=== PATIENT | female | born 1970 | race Caucasian/White ===

== ENCOUNTER → 2019-10-10 14:39 | Outpatient (BNVA) | payer SELFPAY | PROVIDERS: Family Provider Nurse Practitioner; PCP Nurse Practitioner; Visit Provider Nurse Practitioner | DX: R53.83 Other fatigue (principal); R10.9 Unspecified abdominal pain; G25.0 Essential tremor; F41.9 Anxiety disorder, unspecified | CPT/HCPCS: 80053; 81001; 84443; 85025 ==

== ENCOUNTER 2019-10-15 19:19 | Emergency (ER) | payer SELFPAY ==
[2019-10-15] VITALS (8 sets, daily range): BP systolic 88–123; BP diastolic 54–79; PULSE 83–85; RESP 18–20; TEMP 36.6; O2SAT 89–99; BMI 25.0
[2019-10-15 20:51] LABS: Basophils # 0.1 10^3/uL (0.0-0.1); Basophils % 0.9 %; Eosinophils # 0.2 10^3/uL (0.0-0.8); Eosinophils % 2.2 %; Hematocrit 41.8 % (37.0-47.0); Lymphocytes # 2.8 10^3/uL (0.8-4.8); Lymphocytes % 40.4 %; Mean Corpuscular HGB Conc 33.5 g/dL (30.0-36.0); Mean Corpuscular Hemoglobin 32.3 pg (28.0-34.0); Mean Corpuscular Volume 96.3 fL (81-99); Monocytes # 0.6 10^3/uL (0.2-0.9); Monocytes % 8.6 %; Neutrophils # 3.3 10^3/uL (1.8-7.7); Neutrophils % 47.8 %; Nucleated Red Blood Cells % 0 %; Platelet Count 252 10^3/cmm (130-400); Red Blood Count 4.34 10^6/uL (4.1-5.3); Red Cell Distribution Width 12.9 % (12.1-15.1); White Blood Count 6.8 10^3/uL (4.0-10.0)
[2019-10-15 20:57] LABS: Alanine Aminotransferase 6 U/L (0-33); Albumin Level 4.2 g/dL (3.5-5.2); Alkaline Phosphatase 65 IU/L (35-105); Anion Gap 12.7 (5-19); Aspartate Amino Transferase 13 U/L (0-32); Blood Urea Nitrogen 7 mg/dL (6-20); Calcium 9.5 mg/dL (8.5-10.5); Carbon Dioxide 29 mmol/L (22-29); Chloride 101 mmol/L (98-107); Globulin 2.6 g/dL (1.3-4.6); Glomerular Filtration Rate 88.9 mL/min (90-130); Lipase 12 U/L (13-60); Potassium 3.7 mmol/L (3.5-5.1); Sodium 139 mmol/L (136-145); Total Bilirubin 0.2 mg/dL (0.15-1.2); Total Protein 6.8 g/dL (6.6-8.7)
--- NOTE | 2019-10-15 20:59 | ED_ITS ---
Entered by Monique Ghotra, acting as scribe for Cathy Malik MD Oct 15, 2019 19:19 HPI - Abdominal Pain General: Chief Complaint: Abdominal Pain Stated Complaint: ABD PAIN Time Seen by Provider: 10/15/19 20:56 Source: patient and family Mode of arrival: ambulatory History of Present Illness: HPI narrative: 49 y/o female presents to the ED with complaint of abd pain. Pt states this started around 1300 today. Pt states she has chronic diarrhea and a hx of colitis. MD elicited complaint: abdominal pain (RLQ) Pain Consistency: constant Location: RLQ Severity: moderate Exacerbating factors: movement Relieving factors: nothing Associated Symptoms: Reports diarrhea; Denies chills, dysuria, fever(s), nausea and vomiting Review of Systems Const: Denies: fever, chills, body aches or change in appetite Eyes: Denies: blurry vision or eye discomfort ENMT: Denies: throat pain or dental pain Card: Denies: chest pain Resp: Denies: shortness of breath GI: Reports: abdominal pain and diarrhea; Denies: nausea or vomiting : Denies: painful urination Musc: Denies: neck pain or back pain Skin/Breast: Denies: rash Neuro: Denies: headache Psych: Denies: depression Hamlet/Lymph: Denies: easy bruising All/Imm: Denies: hives PFSH ED PFSH: Statuses (acute, chronic, etc) shown below reflect problem list status as previously entered and may not be historically accurate Medical History (Updated 10/15/19 @ 22:45 by Cathy Malik MD) Anxiety and depression (Chronic) Essential tremor (Chronic) History of gout (Acute) History of stroke (Acute) 2014 Seizure (Acute) Surgical History (Updated 10/10/19 @ 14:35 by LAURIE Jennings) History of hernia repair (Acute) 2014 History of hysterectomy (Acute) 1999 Family History (Updated 10/10/19 @ 14:38 by LAURIE Jennings) Mother Arthritis Cancer Breast Father Arthritis Brother Seizure disorder Social History Smoking and tobacco status: current every day smoker Smoking risk assessment/counseling performed?: Yes Alcohol intake: current Alcohol intake frequency: holidays/special occasions only Desire information about alcohol rehabilitation?: No Counseling given: No Desire information about substance/drug rehabilitation?: No Counseling given: No Adopted: No Caregiver/support person: No Lives independently: Yes Household members: spouse Housing: House Marital status: Number of children: 3 service: No Current occupational status: employed Current occupational exposures/hazards: No Pets and animals: Yes History of recent travel: No Current gender identity: Female Physical Exam Const: COMMON NORMALS: oriented x3 and alert HENMT: COMMON NORMALS: normocephalic and head/scalp atraumatic HEAD & SCALP: normocephalic and atraumatic Eye: COMMON NORMALS: PERRL and EOMs intact bilaterally PUPIL: Yes PERRL Neck/C-Spine: COMMON NORMALS: full ROM and supple Chest: COMMONS NORMALS: inspection of chest normal and palpation of chest normal Resp: COMMON NORMALS: normal respiratory effort, no retractions, no use of accessory muscles and clear to auscultation bilaterally AUSCULTATION: clear to auscultation bilaterally Cardio: COMMON NORMALS: regular rate, regular rhythm and no murmurs RATE: regular rate RHYTHM: regular rhythm GI: COMMON NORMALS: soft to palpation and no masses PALPATION: Yes soft and Yes tender Details: RLQ Extremity: COMMON NORMALS: normal to inspection and full ROM Neuro: COMMON NORMALS: oriented x3, moves all extremities and no focal motor deficits SENSORIUM/ORIENTATION: Yes alert Psych: COMMON NORMALS: mental status grossly normal, thought process normal and cooperative THOUGHT PROCESS: normal thought process Skin: COMMON NORMALS: no rashes or lesions noted and no wounds GENERAL SKIN EXAM: no rashes or lesions noted Course Vital Signs: Vital signs: Vital Signs Temperature 97.9 F 10/15/19 19:34 Pulse Rate 85 10/15/19 23:31 Respiratory Rate 18 10/15/19 23:31 Blood Pressure 115/68 10/15/19 23:31 Pulse Oximetry 90 10/15/19 23:31 MDM - Abdominal Pain MDM Narrative: Medical decision making narrative: Patient presents here with abdominal pain. Patient CT here is normal lab work looks normal as well. Her pain here is improved. Will prescribe her Bentyl and she is to follow-up with primary care doctor in 3 to 5 days return if worsening. Lab Data: Labs: Lab Results 10/15/19 10/15/19 10/15/19 Range/Units 19:53 20:35 20:35 WBC 6.8 (4.0-10.0) 10^3/ uL RBC 4.34 (4.1-5.3) 10^6/u L Hgb 14.0 (11.5-15.3) g/dL Hct 41.8 (37.0-47.0) % MCV 96.3 (81-99) fL MCH 32.3 (28.0-34.0) pg MCHC 33.5 (30.0-36.0) g/dL RDW 12.9 (12.1-15.1) % Plt Count 252 (130-400) 10^3/c mm MPV 10.0 (7.4-10.4) fL Neut % (Auto) 47.8 % Lymph % (Auto) 40.4 % Haskell % (Auto) 8.6 % Eos % (Auto) 2.2 % Baso % (Auto) 0.9 % Neut # (Auto) 3.3 (1.8-7.7) 10^3/u L Lymph # (Auto) 2.8 (0.8-4.8) 10^3/u L Haskell # (Auto) 0.6 (0.2-0.9) 10^3/u L Eos # (Auto) 0.2 (0.0-0.8) 10^3/u L Baso # (Auto) 0.1 (0.0-0.1) 10^3/u L Nucleated RBC % (a uto) 0 % Nucleated RBCs # 0.0 /100WBC Sodium 139 (136-145) mmol/L Potassium 3.7 (3.5-5.1) mmol/L Chloride 101 (98-107) mmol/L Carbon Dioxide 29 (22-29) mmol/L Anion Gap 12.7 (5-19) BUN 7 (6-20) mg/dL Creatinine 0.7 (0.5-0.9) mg/dL GFR Calculation 88.9 L (90-130) mL/min Glucose 88 (65-115) mg/dL Calcium 9.5 (8.5-10.5) mg/dL Total Bilirubin 0.2 (0.15-1.2) mg/dL AST 13 (0-32) U/L ALT 6 (0-33) U/L Alkaline Phosphata se 65 (35-105) IU/L Total Protein 6.8 (6.6-8.7) g/dL Albumin 4.2 (3.5-5.2) g/dL Globulin 2.6 (1.3-4.6) g/dL Lipase 12 L (13-60) U/L Urine Color Yellow (Yellow) Urine Appearance Clear (CLEAR) Urine pH 7 (5-7) Ur Specific Gravit y 1.015 (1.005-1.030) Urine Protein Neg (Negative) Urine Glucose (UA) Norm (Normal) Urine Ketones Negative (Negative) Urine Occult Blood Neg (Negative) Urine Nitrate Negative (Negative) Urine Bilirubin Neg (NEGATIVE) Urine Urobilinogen Norm (Negative) mg/dL Ur Leukocyte Laine ase Negative (Negative) Imaging Data ^: CT Abd/Pel: Radiologist's impression: [place] [address] CT Scan Report Signed Patient: Maria Cao #: [id number] : 1970Acct#:[id number] Age/Sex: 49 / FADM Date: 10/15/19 Loc: ERRoom/Bed: Attending Dr: Ordering Provider/Ordering MD: Cathy Malik MD Date of Service: 10/15/19 Procedure(s): CT abdomen pelvis w con* [id number] Accession Number(s): [id number] Report Number: [id number] PROCEDURE INFORMATION: Exam: CT Abdomen And Pelvis With Contrast Exam date and time: 10/15/2019 9:19 PM Age: 49 years old Clinical indication: Nausea; Abdominal pain; Localized; Right lower quadrant (rlq); Prior surgery; Surgery type: Hysto, hernia; Additional info: Abd pain TECHNIQUE: Imaging protocol: Computed tomography of the abdomen and pelvis with intravenous contrast. Total DLP: 612 mGy-cm Radiation optimization: All CT scans at this facility use at least one of these dose optimization techniques: automated exposure control; mA and/or kV adjustment per patient size (includes targeted exams where dose is matched to clinical indication); or iterative reconstruction. Contrast material: OMNI 300; Contrast volume: 95 ml; Contrast route: IV; COMPARISON: US pelvic with transvaginal 07/08/2019 1:19 PM FINDINGS: Lungs: In the left lower lobe there is an 11 x 9 mm opacity more likely representing atelectasis than a lung nodule. Incidental right middle lobe calcified granuloma. Liver: Normal. No mass. Gallbladder and bile ducts: Normal. No calcified stones. No ductal dilation. Pancreas: Normal. No ductal dilation. Spleen: Normal. No splenomegaly. Adrenals: Normal. No mass. Kidneys and ureters: Normal. No hydronephrosis. Stomach and bowel: There are a few noninflamed diverticula in the distal colon. The terminal ileum is normal. Small bowel is normal. Appendix: The appendix is normal. Intraperitoneal space: Unremarkable. No free air. No significant fluid collection. Vasculature: Unremarkable. No abdominal aortic aneurysm. Lymph nodes: Unremarkable. No enlarged lymph nodes. Bladder: Unremarkable as visualized. Reproductive: The uterus is surgically absent. Bones/joints: Unremarkable. No acute fracture. Soft tissues: Small umbilical hernia consist of fatty tissue only. CT/CT abdomen pelvis w con* [id number] IMPRESSION: 1. No acute abdominal or pelvic findings. 2. Other chronic and incidental findings as described. Radiation Dose CTDIVOL = (mGy): DLP = 612 (mGy-cm) Dictated By:Jose Manuel Gates MD Signed By:Jose Manuel Gatesigned Date/Time:10/15/192206 Discharge Plan Discharge Patient Disposition: Home, Self-Care Clinical Impression: Abdominal pain Qualifiers: Abdominal location: generalized Qualified Code(s): R10.84 - Generalized abdominal pain Condition: Stable Prescriptions: New dicyclomine 20 mg tablet 20 mg PO QID Qty: 20 RF: 0 No Action naproxen [Naprosyn] 500 mg tablet 500 mg PO BID PRNRF: 0 primidone 250 mg tablet 250 mg PO TID RF: 0 albuterol sulfate [ProAir HFA] 90 mcg/actuation HFA aerosol inhaler 2 puff INHALATION QID RF: 0 propranolol 40 mg tablet 40 mg PO BID RF: 0 Discharge Orders: Discharge Order (Routine); Ordered 10/15/19 Ordered By: Cathy Malik Referrals: Franklin Chaves, PROPERTY ASSISTANT-C [Primary Care Provider] - 4-7 days Discharge Diet: Advance as tolerated Discharge Activity: Resume usual activity Patient Instructions: Abdominal Pain (ED) Discharge Date/Time: 10/15/19 23:32 Coding Level of Care Code ED System Software Developer for Yg Yousif The documentation recorded by the Brandin zaidi Ashley, accurately reflects the service I personally performed and the decisions made by Helena lan Korby, MD Oct 15, 2019 19:19
--- NOTE | 2019-10-15 21:02 | CTR_ITS ---
PROCEDURE INFORMATION: Exam: CT Abdomen And Pelvis With Contrast Exam date and time: 10/15/2019 9:19 PM Age: 49 years old Clinical indication: Nausea; Abdominal pain; Localized; Right lower quadrant (rlq); Prior surgery; Surgery type: Hysto, hernia; Additional info: Abd pain TECHNIQUE: Imaging protocol: Computed tomography of the abdomen and pelvis with intravenous contrast. Total DLP: 612 mGy-cm Radiation optimization: All CT scans at this facility use at least one of these dose optimization techniques: automated exposure control; mA and/or kV adjustment per patient size (includes targeted exams where dose is matched to clinical indication); or iterative reconstruction. Contrast material: OMNI 300; Contrast volume: 95 ml; Contrast route: IV; COMPARISON: US pelvic with transvaginal 07/08/2019 1:19 PM FINDINGS: Lungs: In the left lower lobe there is an 11 x 9 mm opacity more likely representing atelectasis than a lung nodule. Incidental right middle lobe calcified granuloma. Liver: Normal. No mass. Gallbladder and bile ducts: Normal. No calcified stones. No ductal dilation. Pancreas: Normal. No ductal dilation. Spleen: Normal. No splenomegaly. Adrenals: Normal. No mass. Kidneys and ureters: Normal. No hydronephrosis. Stomach and bowel: There are a few noninflamed diverticula in the distal colon. The terminal ileum is normal. Small bowel is normal. Appendix: The appendix is normal. Intraperitoneal space: Unremarkable. No free air. No significant fluid collection. Vasculature: Unremarkable. No abdominal aortic aneurysm. Lymph nodes: Unremarkable. No enlarged lymph nodes. Bladder: Unremarkable as visualized. Reproductive: The uterus is surgically absent. Bones/joints: Unremarkable. No acute fracture. Soft tissues: Small umbilical hernia consist of fatty tissue only. CT/CT abdomen pelvis w con* [id number] IMPRESSION: 1. No acute abdominal or pelvic findings. 2. Other chronic and incidental findings as described. Radiation Dose CTDIVOL = (mGy): DLP = 612 (mGy-cm)
[2019-10-15 21:17] LABS: Add Urine Microscopic? NO
[2019-10-15 21:19] LABS: Bilirubin Urine Neg (NEGATIVE); Blood Urine Neg (Negative); Glucose Urine UA Norm (Normal); Ketones Urine Negative (Negative); Leukocyte Esterase Urine Negative (Negative); Nitrate Urine Negative (Negative); Protein Urine Neg (Negative); Specific Gravity, Urine 1.015 (1.005-1.030); Urine Appearance Clear (CLEAR); Urine Color Yellow (Yellow); Urobilinogen Urine Norm (Negative); pH Urine 7 (5-7)
--- NOTE | 2019-10-15 21:29 | PC.NURSE ---
pt presents to facility with c/o's RLQ abd pain rated 5/10. states she was walking to coffee pot around 1300 today and doubled over in pain. and has not let up thus far. abd tender to touch in RLQ. reports hx of rt sided inguinal hernia repair and hx of partial hysterectomy in 2000
[2019-10-15] MEDS: morphine 4 mg/mL SDV 1 mL IVP (21:34)
[2019-10-15] MEDS: ondansetron 2 mg/ML SDV 2 mL 4 MG IVP (21:34)
[2019-10-16 09:07] LABS: Glucose 88 mg/dL (65-115)
== END 2019-10-15 23:32 | disposition home or self-care (01) ==
PROVIDERS: Emergency Provider Emergency Medicine; Family Provider Nurse Practitioner; PCP Nurse Practitioner
DX: R10.84 Generalized abdominal pain (principal); F17.200 Nicotine dependence, unspecified, uncomplicated
CPT/HCPCS: 36415; 74177; 80053; 81003; 83690; 85025; 96374; 96375; 99283; J2270; J2405; Q9967

== ENCOUNTER → 2019-10-16 10:47 | Outpatient (BNVA) | payer SELFPAY | PROVIDERS: Family Provider Nurse Practitioner; PCP Nurse Practitioner; Visit Provider Nurse Practitioner | DX: M54.5 Low back pain (principal); I70.0 Atherosclerosis of aorta; R07.9 Chest pain, unspecified | CPT/HCPCS: 71046; 72100 ==

== ENCOUNTER 2019-12-25 17:18 | Emergency (ER) | payer SELFPAY ==
[2019-12-25 17:24] VITALS: BP 138/82; PULSE 69; RESP 17; TEMP 36.6; O2SAT 96; BMI 24.5
--- NOTE | 2019-12-25 17:32 | W.ED.EXTPRO ---
HPI - Extremity Problem General: Chief complaint: Extremity Injury, Upper Stated complaint: right hand finger lac Time Seen by Provider: 12/25/19 17:25 Source: patient Mode of arrival: ambulatory Limitations: no limitations History of Present Illness: HPI Narrative: Patient was shutting her garage door and caught her fourth finger on the right hand within the joint of the door. Patient ended up lacerating the ulnar aspect of the distal finger. Nail is intact. Patient states last tetanus was 6 to 7 years ago. Patient appears well. Patient appears in mild pain. Review of Systems General: Reports: 10 or more systems reviewed and unremarkable except in HPI and below Skin/Breast: Reports: other (Laceration fourth digit right hand.) PFSH ED PFSH: Social History Smoking and tobacco status: current every day smoker Smoking risk assessment/counseling performed?: Yes Alcohol intake: current Alcohol intake frequency: holidays/special occasions only Desire information about alcohol rehabilitation?: No Counseling given: No Desire information about substance/drug rehabilitation?: No Counseling given: No Adopted: No Caregiver/support person: No Lives independently: Yes Household members: spouse Housing: House Marital status: Number of children: 3 service: No Current occupational status: employed Current occupational exposures/hazards: No Pets and animals: Yes History of recent travel: No Current gender identity: Female Physical Exam Const: COMMON NORMALS: no apparent distress and oriented x3 GENERAL APPEARANCE: cooperative HENMT: COMMON NORMALS: normocephalic, TM's normal bilaterally and external nose normal HEAD & SCALP: normal to inspection and normocephalic NOSE: external nose normal TYMPANIC MEMBRANE: TM's normal bilaterally MOUTH: oral and palatal mucosa normal THROAT: posterior oropharynx normal Eye: GENERAL EYE: normal appearance of both eyes Neck/C-Spine: COMMON NORMALS: full ROM Lymph: LYMPHATIC: no lymphadenopathy noted Chest: COMMONS NORMALS: inspection of chest normal Resp: COMMON NORMALS: normal respiratory effort EFFORT & INSPECTION: Yes able to speak in complete sentences Cardio: COMMON NORMALS: regular rate and regular rhythm RATE: regular rate RHYTHM: regular rhythm GI: COMMON NORMALS: non-tender : COMMON NORMALS: Yes no CVA tenderness BLADDER/KIDNEY EXAM: Yes no CVA tenderness Back/Pelvis: COMMON NORMALS: no CVA tenderness and thoracic and lumbar spine normal to inspection Extremity: COMMON NORMALS: normal to inspection Neuro: COMMON NORMALS: oriented x3 and moves all extremities Psych: COMMON NORMALS: mental status grossly normal and cooperative Skin: NARRATIVE SKIN EXAM: 2 cm laceration to the ulnar aspect of the dorsal distal fourth digit on the right hand. Nailbed remains intact and nail plate is intact. Laceration is caused a skin flap. Normal tendon function is noted. No foreign body is noted. Procedures Laceration Laceration 1: Site: hand (right hand fourth finger) Side (If applicable): right Size (cm): 2 Description: flap Depth: simple, single layer Local Anesthetic: lidocaine 1% Amount of anesthesia used (mL): 3 Pre-repair: wound explored and deep structures intact Skin layer closed with: nylon Size (cm): 5-0 Number of sutures: 5 Technique: simple, interrupted Course Vital Signs: Vital signs: Vital Signs Temperature 97.9 F 12/25/19 17:24 Pulse Rate 69 12/25/19 17:24 Respiratory Rate 17 12/25/19 17:24 Blood Pressure 138/82 12/25/19 17:24 Pulse Oximetry 96 12/25/19 17:24 MDM - Extremity (Nontraumatic) MDM Narrative: Medical decision making narrative: Patient comes in today for injury to the right fourth digit. On exam we note a 2 cm laceration to the ulnar dorsal aspect of the right ring finger. Patient has normal range of motion of the finger. Good cap refill. Normal sensation. No signs of foreign body was noted or tendon injury was noted. Differential diagnosis includes but not limited to laceration, fracture, tendon injury, foreign body. X-ray of the finger noted no fracture. Wound was repaired with 5 sutures of 5-0 Ethilon. Patient tolerated well. Reviewed post procedure care and need for follow-up. Patient reported understanding. Discharge Plan Discharge Patient Disposition: Home, Self-Care Clinical Impression: Finger laceration Qualifiers: Encounter type: initial encounter Finger: ring finger Damage to nail status: without damage Foreign body presence: without foreign body Laterality: right Qualified Code(s): S61.214A - Laceration without foreign body of right ring finger without damage to nail, initial encounter Condition: Stable Prescriptions: New Bactrim DS 800-160 mg tablet 1 tab PO DAILY Qty: 7 RF: 0 No Action albuterol sulfate [ProAir HFA] 90 mcg/actuation HFA aerosol inhaler 2 puff INHALATION QID RF: 0 escitalopram oxalate [Lexapro] 5 mg tablet 5 mg PO DAILY Qty: 30 RF: 2 propranolol 40 mg tablet 40 mg PO BID Qty: 60 RF: 5 primidone 250 mg tablet 250 mg PO TID Qty: 90 RF: 5 Naprosyn 500 mg tablet 500 mg PO BID PRN (Reason: pain) RF: 0 Discharge Orders: Discharge Order (Routine); Ordered 12/25/19 Ordered By: Jatin Stewart Referrals: Franklin Chaves FNP-C [Primary Care Provider] - Discharge Diet: Usual diet Discharge Activity: Increase activity as tolerated Patient Instructions: Finger Laceration (ED) Activity Restrictions/Additional Instructions: Keep wound clean and dry. Avoid submersion underwater while sutures are in place. Activity as tolerated. Change dressing daily, wash with mild soap and water and dry thoroughly then cover. May go without dressing at bedtime. Return to the ER for increased pain or high fever. Follow-up with primary care in 1 week. Sutures out in 7 to 10 days. Coding Level of Care Code ED Service Crew Supervisor for Chg Fwd Exam Comprehensive
--- NOTE | 2019-12-25 17:36 | XR_ITS ---
WS: [id number] RIGHT HAND: 3 VIEW(S) TECHNIQUE: PA, oblique and lateral. HISTORY: injury COMPARISON: 09/14/2018 No acute fracture or dislocation. No soft tissue or bone abnormality. Mild degenerative changes at the first metatarsophalangeal joint. XR/XR hand RT min 3V* [id number] IMPRESSION: No acute RIGHT hand fracture.
[2019-12-25] MEDS: lidocaine 1% INJ 20 mL 6 ML SUBCUT (18:17)
[2019-12-25] MEDS: sulfamethoxazole-trimeth DS 160-800 mg Tablet 1 TAB PO (18:22)
[2019-12-25 18:24] VITALS: BP 108/79; PULSE 70; RESP 16; O2SAT 96
== END 2019-12-25 18:25 | disposition home or self-care (01) ==
PROVIDERS: Emergency Provider Nurse Practitioner Family; Family Provider Nurse Practitioner; PCP Nurse Practitioner
DX: S61.214A Laceration without foreign body of right ring finger without damage to nail, initial encounter (principal); W23.0XXA Caught, crushed, jammed, or pinched between moving objects, initial encounter; F17.210 Nicotine dependence, cigarettes, uncomplicated
CPT/HCPCS: 12001; 12345; 73130; 99281; 99283; J2001

== ENCOUNTER → 2020-09-24 15:57 | Outpatient (BNVA) | payer SELFPAY | PROVIDERS: Family Provider Nurse Practitioner; PCP Nurse Practitioner; Visit Provider Nurse Practitioner Family | DX: M79.672 Pain in left foot (principal) | CPT/HCPCS: 73630 ==

== ENCOUNTER → 2021-01-06 08:13 | Outpatient (BNVA) | payer SELFPAY | PROVIDERS: Family Provider Nurse Practitioner; PCP Nurse Practitioner; Visit Provider Nurse Practitioner | DX: M19.90 Unspecified osteoarthritis, unspecified site (principal); R53.83 Other fatigue | CPT/HCPCS: 80053; 84443; 85025; 85651 ==

== ENCOUNTER 2021-02-04 09:07 | Outpatient (CLI) | payer SELFPAY ==
--- NOTE | 2021-02-04 09:30 | US_ITS ---
WS: [id number] Complete ABDOMINAL ULTRASOUND HISTORY: R10.31 - Right lower quadrant pain COMPARISON: None available. Liver: 16.3 cm in length. Liver is normal size and echogenicity with no mass or intrahepatic dilatati on. Gallbladder: Normally distended with no gallstones, wall thickening or pericholecystic fluid. Gallbladder wall thickness: 0.2 cm. Pancreas: Normal size and echogenicity. CBD: 0.4 cm. Right kidney: 10.3 cm x 5.2 cm x 3.8 cm. No mass, cortical thickening or hydronephrosis. Left kidney: 10.7 cm x 5.7 cm x 5.4 cm. No mass, cortical thickening or hydronephrosis. Spleen: Normal size and echogenicity. Abdominal aorta and IVC are within normal limits. No ascites. US/US abdomen complete* [id number] IMPRESSION: Normal complete abdomen ultrasound.
== END 2021-02-04 09:08 | disposition home or self-care (01) ==
LOC: RAD 09:09
PROVIDERS: Family Provider Nurse Practitioner; PCP Nurse Practitioner; Visit Provider Nurse Practitioner
DX: R10.31 Right lower quadrant pain (principal)
CPT/HCPCS: 76700

== ENCOUNTER → 2021-07-06 11:28 | Outpatient (BNVA) | payer SELFPAY | PROVIDERS: Family Provider Nurse Practitioner; PCP Nurse Practitioner; Visit Provider Nurse Practitioner | DX: F32.9 Major depressive disorder, single episode, unspecified (principal); F41.9 Anxiety disorder, unspecified; G25.0 Essential tremor; M19.90 Unspecified osteoarthritis, unspecified site; R53.83 Other fatigue | CPT/HCPCS: 80053; 85025 ==

== ENCOUNTER → 2021-07-20 14:08 | Outpatient (BNVA) | payer SELFPAY | PROVIDERS: Family Provider Nurse Practitioner; PCP Nurse Practitioner; Visit Provider Nurse Practitioner | DX: Z12.72 Encounter for screening for malignant neoplasm of vagina (principal) | CPT/HCPCS: 88175 ==

== ENCOUNTER → 2021-10-25 14:57 | Outpatient (BNVA) | payer SELFPAY | PROVIDERS: Family Provider Nurse Practitioner; PCP Nurse Practitioner; Visit Provider Nurse Practitioner | DX: E55.9 Vitamin D deficiency, unspecified (principal); M25.512 Pain in left shoulder | CPT/HCPCS: 73030; 82306 ==

== ENCOUNTER 2022-01-03 14:59 | Outpatient (CLI) | payer SELFPAY ==
--- NOTE | 2022-01-03 15:06 | MM_ITS ---
WS: [id number] BILATERAL 3D TOMOSYNTHESIS DIGITAL SCREENING MAMMOGRAPHY WITH CAD CLINICAL INFORMATION: SCREENING HISTORY: Screening mammogram. Chronic bilateral breast lumps COMPARISON: June 02, 2017 TECHNIQUE: Bilateral CC and MLO views. FINDINGS: The breasts are composed of heterogeneous fibroglandular density tissue, which can limit the detectio n of small underlying mass lesions. Punctate and lucent centered calcifications. No suspicious mass, asymmetry, calcifications, or architectural distortion. No evidence of malignancy. MM/[place] [id number] IMPRESSION: BI-RADS: 2-Benign FOLLOW UP: 1 Year Follow-up Recommend return to annual screening mammography.
== END 2022-01-03 15:00 | disposition home or self-care (01) ==
LOC: RAD 15:01
PROVIDERS: PCP Nurse Practitioner; Visit Provider Nurse Practitioner
DX: Z12.31 Encounter for screening mammogram for malignant neoplasm of breast (principal)
CPT/HCPCS: 77063; 77067

== ENCOUNTER → 2022-03-31 11:31 | Outpatient (BNVA) | payer MEDICAID, SELFPAY | PROVIDERS: PCP Nurse Practitioner; Visit Provider Nurse Practitioner | DX: M19.90 Unspecified osteoarthritis, unspecified site (principal); M54.12 Radiculopathy, cervical region; F41.9 Anxiety disorder, unspecified; F32.9 Major depressive disorder, single episode, unspecified; G25.0 Essential tremor; Z13.6 Encounter for screening for cardiovascular disorders | CPT/HCPCS: 80053; 80061 ==

== ENCOUNTER → 2022-05-12 10:08 | Outpatient (BNVA) | payer MEDICAID, SELFPAY | PROVIDERS: PCP Nurse Practitioner; Visit Provider Nurse Practitioner | DX: Z20.822 Contact with and (suspected) exposure to COVID-19 (principal); R05.9 Cough, unspecified; J06.9 Acute upper respiratory infection, unspecified | CPT/HCPCS: 87400; 87426 ==

== ENCOUNTER → 2022-06-20 16:17 | Outpatient (BNVA) | payer OTHER, SELFPAY | PROVIDERS: PCP Nurse Practitioner; Visit Provider Nurse Practitioner | DX: F32.9 Major depressive disorder, single episode, unspecified (principal); F41.9 Anxiety disorder, unspecified; R73.9 Hyperglycemia, unspecified | CPT/HCPCS: 80053; 83036 ==

== ENCOUNTER → 2022-07-21 13:24 | Outpatient (BNVA) | payer OTHER, MEDICAID, SELFPAY | PROVIDERS: PCP Nurse Practitioner; Visit Provider Nurse Practitioner | DX: R05.9 Cough, unspecified (principal); E78.2 Mixed hyperlipidemia; J98.01 Acute bronchospasm; G25.0 Essential tremor; J06.9 Acute upper respiratory infection, unspecified | CPT/HCPCS: 87486; 87581; 87633 ==

== ENCOUNTER 2022-07-23 18:05 | Emergency (ER) | payer OTHER, MEDICAID, SELFPAY ==
[2022-07-23 18:07] VITALS: BP 100/68; PULSE 92; RESP 22; TEMP 36.8; O2SAT 90; BMI 22.8
--- NOTE | 2022-07-23 18:26 | XRR_ITS ---
PROCEDURE INFORMATION: Exam: XR Chest Exam date and time: 07/23/2022 7:33 PM Age: 51 years old Clinical indication: Shortness of breath; Additional info: SOB TECHNIQUE: Imaging protocol: Radiologic exam of the chest. Views: 1 view. COMPARISON: 1. CR XR chest 2V* [id number] 10/16/2019 10:[address] abdomen pelvis w con* [id number] 10/15/2019 9:47 PM FINDINGS: Lungs: Lungs are clear bilaterally. Pleural spaces: No pleural effusion. No pneumothorax. Heart/Mediastinum: Cardiac silhouette is normal in size. Vasculature: Vascular calcifications in the aorta. Bones/joints: Unremarkable for age. Soft tissues: There is a new soft tissue focus with a smooth convex border at the right cardiophrenic angle. This could represent a prominent pericardial fat pad, however this was not present on prior imaging studies and a possible developing mass cannot be ruled out. XR/XR chest 1V portable [id number] IMPRESSION: 1. No acute cardiopulmonary process. 2. There is a new soft tissue focus with a smooth convex border at the right cardiophrenic angle. This could represent a prominent pericardial fat pad, however this was not present on prior imaging studies and a possible developing mass cannot be ruled out. Recommend clinical correlation. CT scan of the chest with contrast is also recommended. 3. Incidental/nonacute findings are listed in the report.
[2022-07-23] MEDS: ipratropium-albuterol 3 mL Neb INHALATION (18:39)
--- NOTE | 2022-07-23 18:40 | W.ED.SOB ---
HPI - SOB/Dyspnea General: Chief Complaint: Shortness of Breath/Dyspnea Stated Complaint: Congestion, SOB Time Seen by Provider: 07/23/22 18:15 Source: patient and family History of Present Illness: HPI Narrative: 51-year-old female. She presents with shortness of breath, and cough with occasional sputum production. She is not sure if she has had a fever. This is been ongoing for about 3 days. She has had some vomiting as well. She was seen at a primary care clinic yesterday, and viral swabs were done. She was given promethazine syrup and an albuterol inhaler, but she notes that she seems to cough more with the albuterol inhaler. She has been taking Mucinex also. MD elicited complaint: shortness of breath and cough Pertinent past history: other Onset (ago): day(s) Context: recent illness Timing: constant and progressively worsening Severity: moderate Exacerbating factors: lying flat, exertion and coughing Relieving factors: nothing Associated symptoms: Reports chest congestion, cough, nausea and vomiting; Deny abdominal pain, chest pain, diaphoresis, fever(s) or syncope Treatment prior to arrival: bronchodilator Review of Systems Const: Denies: fever(s) or diaphoresis Eyes: Denies: change in vision ENMT: Reports: throat pain Card: Denies: chest pain or syncope Resp: Reports: dyspnea, productive cough, wheezing and chest congestion GI: Reports: nausea and vomiting; Denies: abdominal pain Neuro: Reports: headache(s) PFSH ED PFSH: Medical History Anxiety and depression Bronchospasm Essential tremor History of gout History of stroke 2015 Osteoarthritis Seizure Smoker Surgical History History of hernia repair 2015 History of hysterectomy 1999 Family History Mother Arthritis Cancer Breast Father Arthritis Brother Seizure disorder Social History Smoking and tobacco status: current every day smoker Smoking risk assessment/counseling performed?: Yes Alcohol intake: current Alcohol intake frequency: holidays/special occasions only Desire information about alcohol rehabilitation?: No Counseling given: No Desire information about substance/drug rehabilitation?: No Counseling given: No Adopted: No Caregiver/support person: No Lives independently: Yes Household members: spouse Housing: House Marital status: Number of children: 3 service: No Current occupational status: employed Current occupational exposures/hazards: No Pets and animals: Yes History of recent travel: No Current gender identity: Female Physical Exam HENMT: COMMON NORMALS: normocephalic, atraumatic and Normal external nose present HEAD & SCALP: normocephalic and atraumatic FACE & SINUS: normal facial exam NOSE: Normal external nose present THROAT: posterior oropharynx abnormal edema and erythema Eye: COMMON NORMALS: Equal, round and reactive pupils present and EOMs intact bilaterally GENERAL EYE: appearance normal, both eyes and all related structures PUPIL: Yes Equal, round and reactive pupils present Neck/C-Spine: GENERAL: Yes trachea midline Chest: CHEST: Yes Symmetrical chest wall rise Resp: COMMON NORMALS: normal respiratory effort, No use of accessory muscles and clear to auscultation bilaterally AUSCULTATION: clear to auscultation bilaterally Cardio: COMMON NORMALS: regular rate and regular rhythm RATE: regular rate RHYTHM: regular rhythm GI: COMMON NORMALS: Normal to inspection, nondistended, normoactive bowel sounds present and Soft to palpation PALPATION: Yes Soft to palpation Extremity: COMMON NORMALS: no pedal edema Neuro: AUGUSTO COMA SCALE: document GCS findings Barco coma scale eye opening: Spontaneous Augusto coma scale verbal response: Orientated Augusto coma scale motor response: Obey commands Barco coma scale total score: 15 Psych: COMMON NORMALS: mental status grossly normal Course Vital Signs: Vital signs: Vital Signs Temperature 98.3 F 07/23/22 18:07 Pulse Rate 90 07/23/22 18:44 Respiratory Rate 20 H 07/23/22 18:44 Blood Pressure 100/68 07/23/22 18:07 Pulse Oximetry 89 L 07/23/22 18:44 Oxygen Delivery Me thod 07/23/22 18:44 MDM - SOB/Dyspnea Medical Decision Making X-ray is negative for infiltrate, but shows an accentuated pericardial fat pad versus mass. CT shows bronchial wall thickening in the right upper lobe right middle lobe and both right and left lower lobes. Bronchopneumonia is suggested. There was no mass on CT, only an enlarged atrium. White blood cell count is 10. Saturations are 90 to 93% on room air. She is breathing much better after DuoNeb treatment. She has a nebulizer machine at home and will be prescribed DuoNeb for home. She has been given Solu-Medrol we will continue steroids plus doxycycline. She knows to return if worsening. Lab Data : 07/23/22 18:54 07/23/22 18:54 Labs/Radiology: Radiology Impressions Chest X-Ray 07/23/22 18:26 IMPRESSION: 1. No acute cardiopulmonary process. 2. There is a new soft tissue focus with a smooth convex border at the right cardiophrenic angle. This could represent a prominent pericardial fat pad, however this was not present on prior imaging studies and a possible developing mass cannot be ruled out. Recommend clinical correlation. CT scan of the chest with contrast is also recommended. 3. Incidental/nonacute findings are listed in the report. ADDENDUM: 07/23/221923 Results were discussed with AGUS Parada on 07/23/2022 at 7:22 PM RASPER MACHINE OPERATOR. Chest CT 07/23/22 19:11 IMPRESSION: 1. Bronchial wall thickening in the right upper lobe, right middle lobe, and both right and left lower lobes. There is also mucous plugging in multiple segmental and subsegmental branches in the right and left lower lobe bronchi. Patchy alveolar airspace disease in the right upper and right middle lobes and reticulonodular thickening in the right middle lobe and both right and left lower lobes. Findings are suspicious for a bronchopneumonia, including atypical organisms. Recommend clinical correlation. Recommend followup chest imaging to insure resolution of these findings. 2. No focal mass at the right cardiophrenic angle. There is mild right atrial enlargement, finding on the prior chest radiographs may have been secondary to this finding. 3. Incidental/nonacute findings are listed in the report. ADDENDUM: 07/23/221952 Urgent results were discussed with AGUS Parada on 07/23/2022 at 7:52 PM RASPER MACHINE OPERATOR. Laboratory Results WBC 10.3 10^3/uL (4.0-10.0) H 07/23/22 18:54 RBC 4.27 10^6/uL (4.1-5.3) 07/23/22 18:54 Hgb 13.8 g/dL (11.5-15.3) 07/23/22 18:54 Hct 41.1 % (37.0-47.0) 07/23/22 18:54 MCV 96.3 fl (81-99) 07/23/22 18:54 MCH 32.3 pg (28.0-34.0) 07/23/22 18:54 MCHC 33.6 g/dL (30.0-36.0) 07/23/22 18:54 RDW 12.9 % (12.1-15.1) 07/23/22 18:54 Plt Count 208 10^3/cmm (130-400) 07/23/22 18:54 MPV 9.8 fL (7.4-10.4) 07/23/22 18:54 Neut % (Auto) 69.1 % 07/23/22 18:54 Lymph % (Auto) 22.2 % 07/23/22 18:54 Hopkins % (Auto) 7.1 % 07/23/22 18:54 Eos % (Auto) 0.8 % 07/23/22 18:54 Baso % (Auto) 0.4 % 07/23/22 18:54 Neut # (Auto) 7.08 10^3/uL (1.8-7.7) 07/23/22 18:54 Lymph # (Auto) 2.3 10^3/uL (0.8-4.8) 07/23/22 18:54 Hopkins # (Auto) 0.7 10^3/uL (0.2-0.9) 07/23/22 18:54 Eos # (Auto) 0.1 10^3/uL (0.0-0.8) 07/23/22 18:54 Baso # (Auto) 0.0 10^3/uL (0.0-0.1) 07/23/22 18:54 Nucleated RBC % (auto) 0 % 07/23/22 18:54 Nucleated RBCs # 0.0 /100WBC 07/23/22 18:54 Sodium 131 mmol/L (136-145) L 07/23/22 18:54 Potassium 4.2 mmol/L (3.5-5.1) 07/23/22 18:54 Chloride 95 mmol/L (98-107) L 07/23/22 18:54 Carbon Dioxide 26 mmol/L (22-29) 07/23/22 18:54 Anion Gap 14.2 (5-19) 07/23/22 18:54 BUN 8 mg/dL (6-20) 07/23/22 18:54 Creatinine 0.5 mg/dL (0.5-0.9) 07/23/22 18:54 GFR Calculation 130.1 mL/min (90-130) H 07/23/22 18:54 Glucose 94 mg/dL (65-115) 07/23/22 18:54 Calculated Osmolality 270 mOsm/kg (285-295) L 07/23/22 18:54 Lactic Acid 0.8 mmol/L (0.5-2.2) 07/23/22 18:54 Calcium 8.8 mg/dL (8.5-10.5) 07/23/22 18:54 Total Bilirubin 0.2 mg/dL (0.15-1.2) 07/23/22 18:54 AST 13 U/L (0-32) 07/23/22 18:54 ALT 6 U/L (0-33) 07/23/22 18:54 Alkaline Phosphatase 65 U/L (35-105) 07/23/22 18:54 NT-Pro-B Natriuret Pep 106 pg/mL (0-125) 07/23/22 18:54 Total Protein 6.7 g/dL (6.6-8.7) 07/23/22 18:54 Albumin 3.8 g/dL (3.5-5.2) 07/23/22 18:54 Globulin 2.9 g/dL (1.3-4.6) 11 18:54 Discharge Plan Discharge Patient Disposition: Home Clinical Impression: Bronchopneumonia Condition: Stable Prescriptions: New doxycycline hyclate 100 mg tablet 100 mg PO BID 7 Days Qty: 14 0RF prednisone 20 mg tablet 40 mg PO DAILY Qty: 10 0RF ipratropium-albuterol 0.5 mg-3 mg(2.5 mg base)/3 mL solution for nebulization 3 ml inhalation Q6H PRN (Reason: shortness of breath or wheezing) Qty: 90 0RF No Action celecoxib [Celebrex] 200 mg capsule 200 mg PO BID Qty: 60 5RF duloxetine [Cymbalta] 30 mg capsule,delayed release(DR/EC) 30 mg PO BID Qty: 60 5RF hydroxyzine pamoate 25 mg capsule 25 mg PO TID PRN (Reason: anxiety) Qty: 90 5RF primidone 250 mg tablet 250 mg PO TID Qty: 90 5RF rosuvastatin [Crestor] 10 mg tablet 10 mg PO DAILY Qty: 30 2RF albuterol sulfate [ProAir HFA] 90 mcg/actuation HFA aerosol inhaler 2 puff INHALATION QID PRN (Reason: shortness of breath or wheezing) Qty: 18 0RF promethazine-DM 6.25-15 mg/5 mL syrup 5 ml PO Q6H PRN (Reason: cough) Qty: 120 0RF propranolol 40 mg tablet 80 mg PO BID Rx Instructions: Morning and Afternoon Discharge Orders: Discharge ED (Routine); Ordered 07/23/22 Ordered By: Agus Mcfarlane Referrals: Franklin Chaves, [facility] [Primary Care Provider] - Patient Instructions: Pneumonia (ED) Activity Restrictions/Additional Instructions: Use your albuterol inhaler with the spacer you were dispensed every 4 hours while awake for the next 48 hours, then as needed. Medications as directed. Humidified air may help. Continue your Mucinex. Return for worsening shortness of breath despite treatment, chest discomfort, other concerning symptoms Coding Level of Care Code ED Technical Communication Teacher for Yg Fwbulmaro Exam Comprehensive
[2022-07-23 18:44] VITALS: PULSE 90; RESP 20; O2SAT 89
[2022-07-23] MEDS: sodium chloride 0.9% 1,000 ML 999 ML IV (18:58)
[2022-07-23 18:59] LABS: Basophils % 0.4 %; Eosinophils # 0.1 10^3/uL (0.0-0.8); Eosinophils % 0.8 %; Hematocrit 41.1 % (37.0-47.0); Hemoglobin 13.8 g/dL (11.5-15.3); Lymphocytes # 2.3 10^3/uL (0.8-4.8); Lymphocytes % 22.2 %; Mean Corpuscular HGB Conc 33.6 g/dL (30.0-36.0); Mean Corpuscular Hemoglobin 32.3 pg (28.0-34.0); Mean Corpuscular Volume 96.3 fl (81-99); Mean Platelet Volume 9.8 fL (7.4-10.4); Monocytes # 0.7 10^3/uL (0.2-0.9); Monocytes % 7.1 %; Neutrophils # 7.08 10^3/uL (1.8-7.7); Neutrophils % 69.1 %; Nucleated Red Blood Cells % 0 %; Platelet Count 208 10^3/cmm (130-400); Red Blood Count 4.27 10^6/uL (4.1-5.3); Red Cell Distribution Width 12.9 % (12.1-15.1); White Blood Count 10.3 10^3/uL (4.0-10.0)
[2022-07-23 19:01] VITALS: BP 107/70; O2SAT 92
--- NOTE | 2022-07-23 19:02 | ECG_ITS ---
[facility] Test Date: 2022-07-23 Pat Name: Maria Cao Department: Room: Gender: Female Journalism Teacher: : 1970 Requested By: Agus Anglin Order Number: [id number] Baldomero MD: Nadiya Nagel M.D. Measurements Intervals [place] Rate: 87 P: 70 [place]: 130 QRS: 77 QRSD: 87 T: 58 QT: 362 QTc: 437 Interpretive Statements SINUS RHYTHM POSSIBLE RIGHT VENTRICULAR CONDUCTION DELAY [RSR (QR) IN V1/V2] No previous ECG available for comparison Electronically Signed On 07-24-2022 22:04:56 AIR DRIER by Nadiya Nagel M.D. [id number]
--- NOTE | 2022-07-23 19:11 | CTR_ITS ---
PROCEDURE INFORMATION: Exam: CT Chest With Contrast; Diagnostic Exam date and time: 07/23/2022 7:26 PM Age: 51 years old Clinical indication: Cough and shortness of breath; Additional info: SOB, ? accentuated pericardial fat pad vs mass TECHNIQUE: Imaging protocol: Diagnostic computed tomography of the chest with contrast. Sagittal and coronal reformatted images were created and reviewed. Radiation optimization: All CT scans at this facility use at least one of these dose optimization techniques: automated exposure control; mA and/or kV adjustment per patient size (includes targeted exams where dose is matched to clinical indication); or iterative reconstruction. Contrast material: OMNI 350; Contrast volume: 100 ml; Contrast route: INTRAVENOUS (IV); COMPARISON: CR (CHEST, ) 07/23/2022 7:33 PM RADIATION DOSE METRICS: Total DLP (mGy-cm): 212.35 FINDINGS: Trachea: Tracheobronchial structures are patent. Lungs: Bronchial wall thickening in the right upper lobe, right middle lobe, and both right and left lower lobes. There is also mucous plugging in multiple segmental and subsegmental branches in the right and left lower lobe bronchi. Patchy alveolar airspace disease in the right upper and right middle lobes and reticulonodular thickening in the right middle lobe and both right and left lower lobes. No pulmonary parenchymal nodules or masses. Pleural spaces: No pneumothorax. No pleural effusion. Heart: No focal mass at the right cardiophrenic angle. There is mild right atrial enlargement, finding on the prior chest radiographs may have been secondary to this finding. Esophagus: The esophagus is unremarkable. Mediastinal space: No mediastinal hematoma. No pneumomediastinum. Lymph nodes: No lymphadenopathy. Calcified subcarinal and right hilar lymph nodes. Vasculature: Mild atherosclerotic changes in the visualized arteries. No evidence for aortic aneurysm or aortic dissection. Pulmonary arteries are unremarkable. Pulmonary veins are unremarkable. Liver: The visualized liver is unremarkable. Gallbladder and bile ducts: No dilatation of the visualized bile ducts. Pancreas: The visualized pancreas is unremarkable. No pancreatic ductal dilatation. Spleen: The spleen is unremarkable. Adrenal glands: The right and left adrenal glands are unremarkable. Kidneys and ureters: The visualized right and left kidneys are unremarkable. Bones/joints: No acute fracture. Soft tissues: No acute abnormality in the extrathoracic soft tissues. CT/CT chest w con* [id number] IMPRESSION: 1. Bronchial wall thickening in the right upper lobe, right middle lobe, and both right and left lower lobes. There is also mucous plugging in multiple segmental and subsegmental branches in the right and left lower lobe bronchi. Patchy alveolar airspace disease in the right upper and right middle lobes and reticulonodular thickening in the right middle lobe and both right and left lower lobes. Findings are suspicious for a bronchopneumonia, including atypical organisms. Recommend clinical correlation. Recommend followup chest imaging to insure resolution of these findings. 2. No focal mass at the right cardiophrenic angle. There is mild right atrial enlargement, finding on the prior chest radiographs may have been secondary to this finding. 3. Incidental/nonacute findings are listed in the report.
[2022-07-23 19:17] LABS: Lactic Sepsis W/Reflex 0.8 mmol/L (0.5-2.2)
[2022-07-23 19:28] LABS: Alanine Aminotransferase 6 U/L (0-33); Albumin Level 3.8 g/dL (3.5-5.2); Alkaline Phosphatase 65 U/L (35-105); Anion Gap 14.2 (5-19); Aspartate Amino Transferase 13 U/L (0-32); Blood Urea Nitrogen 8 mg/dL (6-20); Calcium 8.8 mg/dL (8.5-10.5); Carbon Dioxide 26 mmol/L (22-29); Chloride 95 mmol/L (98-107); Globulin 2.9 g/dL (1.3-4.6); Glomerular Filtration Rate 130.1 mL/min (90-130); Glucose 94 mg/dL (65-115); NT Pro B Type Natriuretic Pept 106 pg/mL (0-125); Osmolality Calculated 270 mOsm/kg (285-295); Potassium 4.2 mmol/L (3.5-5.1); Sodium 131 mmol/L (136-145); Total Bilirubin 0.2 mg/dL (0.15-1.2); Total Protein 6.7 g/dL (6.6-8.7)
[2022-07-23] MEDS: iohexol 350 mg/mL 500 mL Btl (per mL) IV (19:29)
[2022-07-23 19:30] VITALS: BP 98/67
[2022-07-23 20:00] VITALS: BP 107/71; PULSE 89; RESP 21; O2SAT 91
[2022-07-23] MEDS: doxycycline 100 mg Tablet PO (20:21)
[2022-07-23 20:27] VITALS: BP 107/71; PULSE 89; RESP 21; O2SAT 91
== END 2022-07-23 20:32 | disposition home or self-care (01) ==
PROVIDERS: Emergency Provider Emergency Medicine; PCP Nurse Practitioner
DX: J18.0 Bronchopneumonia, unspecified organism (principal); F17.210 Nicotine dependence, cigarettes, uncomplicated; Z86.73 Personal history of transient ischemic attack (TIA), and cerebral infarction without residual deficits
CPT/HCPCS: 71045; 71260; 80053; 83605; 83880; 85025; 93005; 94640; 96361; 96374; 99285; J2930; J7030; Q9967

== ENCOUNTER → 2022-07-27 09:37 | Outpatient (BNVA) | payer MEDICAID, SELFPAY | PROVIDERS: PCP Nurse Practitioner; Visit Provider Nurse Practitioner | DX: J18.0 Bronchopneumonia, unspecified organism (principal); F17.200 Nicotine dependence, unspecified, uncomplicated; E87.1 Hypo-osmolality and hyponatremia | CPT/HCPCS: 71046; 80048 ==

== ENCOUNTER → 2022-08-10 09:36 | Outpatient (BNVA) | payer MEDICAID, SELFPAY | PROVIDERS: PCP Nurse Practitioner; Visit Provider Nurse Practitioner | DX: J18.0 Bronchopneumonia, unspecified organism (principal) | CPT/HCPCS: 71046 ==

== ENCOUNTER 2022-08-12 18:22 | Emergency (ER) | payer MEDICAID, SELFPAY ==
[2022-08-12 18:33] VITALS: BP 99/64; PULSE 78; RESP 17; TEMP 36.9; O2SAT 97; BMI 22.8
--- NOTE | 2022-08-12 20:19 | XRR_ITS ---
PROCEDURE INFORMATION: Exam: XR Chest Exam date and time: 08/12/2022 8:29 PM Age: 51 years old Clinical indication: Other: Pneumonia TECHNIQUE: Imaging protocol: Radiologic exam of the chest. Views: 1 view. COMPARISON: CR XR chest 2V* [id number] 08/10/2022 9:35 AM FINDINGS: Lungs: Opacities in the lung bases have nearly resolved. Mild residual atelectasis in the lung bases. Probable emphysema. Pleural spaces: Unremarkable. No pleural effusion. No pneumothorax. Heart/Mediastinum: Unremarkable. No cardiomegaly. Bones/joints: Mild curvature of the spine. No visible fracture. XR/XR chest 1V portable [id number] IMPRESSION: Nearly resolved pneumonia in the lung bases.
--- NOTE | 2022-08-12 21:38 | ED_ITS ---
HPI - SOB/Dyspnea General: Chief Complaint: Shortness of Breath/Dyspnea Stated Complaint: congestion Time Seen by Provider: 08/12/22 21:34 History of Present Illness: HPI Narrative: Patient comes in today with persistent cough and congestion. Patient stopped her medication for antibiotics about 3 days ago. Patient was diagnosed with pneumonia 2 weeks ago. Patient appears nontoxic. Patient's respirations are even. Patient appears in no pain. Patient reports chest congestion and shortness of breath. Associated symptoms: Deny fever(s) or vomiting Review of Systems Const: Denies: fever(s) Resp: Reports: dyspnea GI: Denies: vomiting PFSH ED PFSH: Medical History Anxiety and depression Bronchospasm Essential tremor History of gout History of stroke 2015 Osteoarthritis Seizure Smoker Surgical History History of hernia repair 2014 History of hysterectomy 2000 Family History Mother Arthritis Cancer Breast Father Arthritis Brother Seizure disorder Social History Smoking and tobacco status: current every day smoker Smoking risk assessment/counseling performed?: Yes Alcohol intake: current Alcohol intake frequency: holidays/special occasions only Desire information about alcohol rehabilitation?: No Counseling given: No Desire information about substance/drug rehabilitation?: No Counseling given: No Adopted: No Caregiver/support person: No Lives independently: Yes Household members: spouse Housing: House Marital status: Number of children: 3 service: No Current occupational status: employed Current occupational exposures/hazards: No Pets and animals: Yes History of recent travel: No Current gender identity: Female Physical Exam Const: COMMON NORMALS: alert HENMT: COMMON NORMALS: normocephalic HEAD & SCALP: normocephalic Neck/C-Spine: COMMON NORMALS: full ROM Resp: COMMON NORMALS: normal respiratory effort AUSCULTATION: diminished lung sounds Cardio: COMMON NORMALS: regular rate and regular rhythm RATE: regular rate RHYTHM: regular rhythm Extremity: COMMON NORMALS: no pedal edema Neuro: SENSORIUM/ORIENTATION: Yes alert Skin: COMMON NORMALS: turgor normal GENERAL SKIN EXAM: turgor normal Course Vital Signs: Vital signs: Vital Signs Temperature 98.4 F 08/12/22 18:33 Pulse Rate 78 08/12/22 18:33 Respiratory Rate 17 08/12/22 18:33 Blood Pressure 99/64 08/12/22 18:33 Pulse Oximetry 97 08/12/22 18:33 Oxygen Delivery Me thod 08/12/22 18:33 MDM - SOB/Dyspnea Medical Decision Making 51-year-old female comes in today for complaints of persistent shortness of breath and cough. On exam patient has some decreased lung sounds in the bases. Skin is warm and dry. Oral mucosa is moist. Vital signs are normal. Differential diagnosis includes pneumonia, respiratory failure, exacerbation of COPD. Chest x-ray shows improving pneumonia. We will go ahead and place patient back on Levaquin 751 tablet daily for the next 7 days. And continue steroid 40 mg daily for next 7 days. Encourage patient drink plenty of fluids. Use nebulizer treatments as directed. And follow-up with primary care for further instruction and evaluation. Patient reported understanding and agreed to plan. Lab Data Labs/Radiology: Radiology Impressions Chest X-Ray 08/12/22 20:19 IMPRESSION: Nearly resolved pneumonia in the lung bases. Discharge Plan Discharge Patient Disposition: Home Clinical Impression: Acute exacerbation of chronic obstructive airways disease Community acquired pneumonia Qualifiers: Laterality: unspecified laterality Qualified Code(s): J18.9 - Pneumonia, unspecified organism Condition: Stable Prescriptions: Continued ipratropium-albuterol 0.5 mg-3 mg(2.5 mg base)/3 mL solution for nebulization 3 ml inhalation Q6H PRN (Reason: shortness of breath or wheezing) Qty: 90 2RF prednisone 20 mg tablet 40 mg PO DAILY Qty: 14 0RF levofloxacin 750 mg tablet 750 mg PO Q24H Qty: 7 0RF No Action celecoxib [Celebrex] 200 mg capsule 200 mg PO BID Qty: 60 5RF duloxetine [Cymbalta] 30 mg capsule,delayed release(DR/EC) 30 mg PO BID Qty: 60 5RF hydroxyzine pamoate 25 mg capsule 25 mg PO TID PRN (Reason: anxiety) Qty: 90 5RF primidone 250 mg tablet 250 mg PO TID Qty: 90 5RF rosuvastatin [Crestor] 10 mg tablet 10 mg PO DAILY Qty: 30 2RF albuterol sulfate [ProAir HFA] 90 mcg/actuation HFA aerosol inhaler 2 puff INHALATION QID PRN (Reason: shortness of breath or wheezing) Qty: 18 0RF promethazine-DM 6.25-15 mg/5 mL syrup 5 ml PO Q6H PRN (Reason: cough) Qty: 120 0RF propranolol 40 mg tablet 80 mg PO BID Rx Instructions: Morning and Afternoon Discharge Orders: Discharge ED (Routine); Ordered 08/12/22 Ordered By: Jatin Stewart Referrals: Franklin Chaves, [employer] [Primary Care Provider] - Discharge Diet: Usual diet Discharge Activity: Increase activity as tolerated Patient Instructions: Pneumonia (ED) Activity Restrictions/Additional Instructions: Home and rest. Drink plenty of fluids. Continue with treatment with DuoNeb, Levaquin, and prednisone. Follow-up with primary care in 1 week for recheck. Return to ED for new concerns or worsening symptoms. Coding Level of Care Code ED System Support Specialist for Yg Yousif
[2022-08-12 21:52] VITALS: BP 111/69; PULSE 88; TEMP 36.7; O2SAT 95
[2022-08-12] MEDS: levoFLOXacin 750 mg Tablet PO (22:15)
[2022-08-12] MEDS: predniSONE 20 mg Tablet 40 MG PO (22:15)
[2022-08-12 22:20] VITALS: PULSE 80; RESP 20; O2SAT 94
[2022-08-12] MEDS: ipratropium-albuterol 3 mL Neb INHALATION (22:20)
[2022-08-12 22:37] VITALS: BP 111/69; PULSE 88; RESP 18; TEMP 36.7; O2SAT 95
== END 2022-08-12 22:32 | disposition home or self-care (01) ==
PROVIDERS: Emergency Provider Nurse Practitioner Family; PCP Nurse Practitioner
DX: J44.0 Chronic obstructive pulmonary disease with (acute) lower respiratory infection (principal); J18.9 Pneumonia, unspecified organism; J44.1 Chronic obstructive pulmonary disease with (acute) exacerbation; Z86.73 Personal history of transient ischemic attack (TIA), and cerebral infarction without residual deficits; F17.210 Nicotine dependence, cigarettes, uncomplicated
CPT/HCPCS: 71045; 94640; 99283; J7512

== ENCOUNTER → 2022-08-16 09:28 | Outpatient (BNVA) | payer MEDICAID, SELFPAY | PROVIDERS: PCP Nurse Practitioner; Visit Provider Nurse Practitioner | DX: J44.1 Chronic obstructive pulmonary disease with (acute) exacerbation (principal) | CPT/HCPCS: 85025 ==

== ENCOUNTER 2022-08-30 08:16 | Outpatient (CLI) | payer MEDICAID, SELFPAY ==
--- NOTE | 2022-08-30 08:30 | CT_ITS ---
WS: [id number] CT CHEST WITH INTRAVENOUS CONTRAST HISTORY: J18.9 - Pneumonia, unspecified organism TECHNIQUE: Contiguous 5 mm axial imaging performed on the thorax. Coronal and sagittal reformats are submitted. All CT scans at [facility] use at least one of these dose optimization techniques: automated exposure control; mA and/or kV adjustment per patient size (includes targeted exams where dose is matched to clinical indication); or iterative reconstruction. CONTRAST: Omnipaque 350; 95 mL IV. DLP: 498.32 mGy.cm COMPARISON: 07/23/2022 Lungs and central airway: Moderate improvement in aeration bilaterally. Bronchial wall thickening and mucous plugging in the RIGHT upper, middle and lower lobes has significantly improved. Mild atelecta sis in the RIGHT middle lobe and lingula. No persistent mass or nodule. No mucous plugging. Pleura: Normal. No pleural effusion. Heart and pericardium: Normal size heart. Mediastinum and xiang: Bilateral perihilar lymph nodes have decreased in size. No enlarged lymph nodes . Vessels: Normal size aorta. Normal pulmonary artery. Chest wall and lower neck: No soft tissue masses. Upper abdomen: No adrenal mass. Visualized upper abdomen is negative. Osseous structures: Nondisplaced RIGHT lateral fifth and sixth rib fractures. Partial healing and scl erosis of the fifth RIGHT rib fracture. CT/CT chest w con* [id number] IMPRESSION: 1. Moderate improvement in the bronchitis and multi lobar pneumonia throughout the RIGHT lung since 07/23/2022. 2. RIGHT lateral fifth and sixth rib fractures, nondisplaced. Partial healing of the RIGHT fifth rib fracture.
[2022-08-30] MEDS: iohexol 350 mg/mL 500 mL Btl (per mL) IV (08:31)
== END 2022-08-30 08:17 | disposition home or self-care (01) ==
LOC: RAD 08:16
PROVIDERS: PCP Nurse Practitioner; Visit Provider Nurse Practitioner
DX: J18.9 Pneumonia, unspecified organism (principal); F17.200 Nicotine dependence, unspecified, uncomplicated; S22.41XA Multiple fractures of ribs, right side, initial encounter for closed fracture; X58.XXXA Exposure to other specified factors, initial encounter
CPT/HCPCS: 71260; Q9967

== ENCOUNTER → 2022-11-01 11:09 | Outpatient (BNVA) | payer OTHER, MEDICAID, SELFPAY | PROVIDERS: PCP Nurse Practitioner; Visit Provider Nurse Practitioner | DX: E78.2 Mixed hyperlipidemia (principal); M19.90 Unspecified osteoarthritis, unspecified site; M54.12 Radiculopathy, cervical region; F41.9 Anxiety disorder, unspecified; J44.1 Chronic obstructive pulmonary disease with (acute) exacerbation; G25.0 Essential tremor; F32.9 Major depressive disorder, single episode, unspecified | CPT/HCPCS: 80053; 80061; 84443; 85651; 86140 ==

== ENCOUNTER 2022-11-08 08:05 | Outpatient (CLI) | payer OTHER, MEDICAID, SELFPAY ==
[2022-11-08 07:42] VITALS: PULSE 73
[2022-11-08 08:23] VITALS: BP 103/61
[2022-11-08 08:37] VITALS: PULSE 69; RESP 18; O2SAT 98
[2022-11-08] MEDS: albuterol 2.5 mg/3 mL Neb INHALATION (08:38)
== END 2022-11-08 08:06 | disposition home or self-care (01) ==
LOC: RT 08:11
PROVIDERS: PCP Nurse Practitioner; Visit Provider Internal Medicine Pulmonary Disease
DX: J18.9 Pneumonia, unspecified organism (principal); F17.200 Nicotine dependence, unspecified, uncomplicated
CPT/HCPCS: 94060; 94618; 94726; 94729; J7613

== ENCOUNTER 2023-01-04 09:36 | Outpatient (CLI) | payer OTHER, MEDICAID, SELFPAY ==
--- NOTE | 2023-01-04 09:52 | MM_ITS ---
WS: [id number] BILATERAL SCREENING DIGITAL TOMOSYNTHESIS MAMMOGRAM WITH CAD HISTORY: SCREENING COMPARISON: 01/03/2022, 06/02/2017 Bilateral CC and MLO views with tomosynthesis and synthetic mammography submitted. Computer aided det ection analyzed. Breast composition: There are scattered areas of fibroglandular density. No suspicious masses, microc alcifications or architectural distortion. MM/[place] [id number] IMPRESSION: BI-RADS: 1-Negative FOLLOW UP: 1 Year Follow-up
== END 2023-01-04 09:37 | disposition home or self-care (01) ==
LOC: RAD 09:43
PROVIDERS: PCP Nurse Practitioner; Visit Provider Nurse Practitioner
DX: Z12.31 Encounter for screening mammogram for malignant neoplasm of breast (principal)
CPT/HCPCS: 77063; 77067

== ENCOUNTER → 2023-04-24 10:51 | Outpatient (BNVA) | payer OTHER, MEDICAID, SELFPAY | PROVIDERS: PCP Nurse Practitioner; Visit Provider Nurse Practitioner | DX: E78.2 Mixed hyperlipidemia (principal) | CPT/HCPCS: 80053; 80061 ==

== ENCOUNTER 2023-06-27 12:56 | Outpatient (CLI) | payer OTHER, MEDICAID, SELFPAY ==
--- NOTE | 2023-06-27 13:00 | US_ITS ---
WS: [id number] ULTRASOUND THYROID TECHNIQUE: Ultrasound of the thyroid. CLINICAL INFORMATION: R13.10 - Dysphagia, unspecified COMPARISON: None. FINDINGS: Thyroid: Right and left thyroid lobes are normal in size and echotexture. No suspicious thyroid nodul es are present. Right thyroid lobe: 4.9 cm x 1.5 cm x 1.5 cm Left thyroid lobe: 4.5 cm x 1.3 cm x 1.4 cm. Isthmus: 0.3 mm. Cervical lymphadenopathy: None. IMPRESSION: Normal thyroid ultrasound examination.
== END 2023-06-27 12:57 | disposition home or self-care (01) ==
LOC: RAD 12:57
PROVIDERS: PCP Nurse Practitioner; Visit Provider Nurse Practitioner
DX: R13.10 Dysphagia, unspecified (principal)
CPT/HCPCS: 76536

== ENCOUNTER → 2023-08-16 12:55 | Outpatient (BNVA) | payer OTHER, MEDICAID, SELFPAY | PROVIDERS: PCP Nurse Practitioner; Visit Provider Nurse Practitioner | DX: N39.0 Urinary tract infection, site not specified (principal); E78.2 Mixed hyperlipidemia | CPT/HCPCS: 81000 ==

== ENCOUNTER 2023-10-03 08:47 | Outpatient (CLI) | payer OTHER, MEDICAID, SELFPAY ==
--- NOTE | 2023-10-03 09:15 | US_ITS ---
WS: [id number] Complete ABDOMINAL ULTRASOUND HISTORY: R10.30 - Lower abdominal pain, unspecified COMPARISON: 02/04/2021 Liver: 17.8 cm in length. Normal size liver and echogenicity. No bile duct dilatation or mass. Portal Vein: Normal hepatopetal flow with monophasic waveform. Gallbladder: Normally distended gallbladder with no stones or wall thickening. CBD: 0.6 cm Pancreas: Normal size and echogenicity. Right kidney: 11.2 cm x 3.8 x 4.6 cm. Cortex:0.9 cm. Normal size and echogenicity. No hydronephrosis or mass. Left kidney: 11.1 cm x 4.8 cm x 4.8 cm. Cortex: 1.1 cm. Normal size and echogenicity. No hydronephrosis or mass. Spleen: Normal size with granulomata. Aorta and IVC: Unremarkable abdominal aorta and IVC. Impression: Normal complete abdomen ultrasound.
--- NOTE | 2023-10-03 10:00 | CT_ITS ---
WS: [id number] LDCT LUNG CANCER SCREENING HISTORY: Z87.891 - Personal history of nicotine dependence TECHNIQUE: Axial imaging performed from the apices to 1 cm below the costophrenic angles. Coronal and sagittal reformats are submitted with axial MIP series. All CT scans at [facility] use at least one of these dose optimization techniques: automated exposure control; mA and/or kV adjustment per patient size (includes targeted exams where dose is matched to clinical indication); or iterativ e reconstruction. DLP: 60.39 mGy.cm DIvol: Mean CTDIvol: 1.30 (mGy) COMPARISON: 08/30/2022 Diagnostic quality: Satisfactory Lungs: Poor inspiration. There is mild hazy attenuation and scattered groundglass opacifications note d bilaterally. The largest area of groundglass attenuation in the central RIGHT lung adjacent to the minor fissure measuring 2.0 x 2.5 cm. 3 mm noncalcified nodule at the LEFT lung base is new since . Heart: Normal size heart with no pericardial effusion.. Other findings: Minimal atherosclerosis aorta. Pulmonary artery size is equal to the aorta. LEFT cerv ical nerve stimulator. Benign calcified RIGHT hilar lymph nodes. Small hiatal hernia. No adrenal mass . IMPRESSION: CT/CT lung screening [id number] LUNG-RADS: 2-Benign Appearance or Behavior FOLLOW UP: 12 Month: Continue annual screening with LDCT OTHER FINDINGS (S MODIFIER): None.
== END 2023-10-03 08:48 | disposition home or self-care (01) ==
LOC: RAD 08:47
PROVIDERS: PCP Nurse Practitioner; Visit Provider Nurse Practitioner
DX: Z12.2 Encounter for screening for malignant neoplasm of respiratory organs (principal); Z87.891 Personal history of nicotine dependence; R91.1 Solitary pulmonary nodule; R10.30 Lower abdominal pain, unspecified
CPT/HCPCS: 71271; 76700

== ENCOUNTER → 2023-10-09 10:46 | Outpatient (BNVA) | payer OTHER, MEDICAID, SELFPAY | PROVIDERS: PCP Nurse Practitioner; Visit Provider Nurse Practitioner | DX: E55.9 Vitamin D deficiency, unspecified (principal); E78.2 Mixed hyperlipidemia | CPT/HCPCS: 80053; 80061; 82306; 82607; 84443; 85025 ==

== ENCOUNTER 2023-11-11 23:46 | Emergency (ER) | payer OTHER, MEDICAID, SELFPAY ==
[2023-11-12 00:10] VITALS: BP 113/75; PULSE 88; RESP 17; TEMP 36.5; O2SAT 93; BMI 29.3
--- NOTE | 2023-11-12 00:16 | XRR_ITS ---
PROCEDURE INFORMATION: Exam: XR Left Ankle Exam date and time: 11/12/2023 12:50 AM Age: 53 years old Clinical indication: Left; Patient HX: Medial ankle pain; Additional info: Fall, pain TECHNIQUE: Imaging protocol: Radiologic exam of the left ankle. Views: 3 or more views. COMPARISON: CR XR foot LT min 3V* [id number] 09/24/2020 3:58 PM FINDINGS: Bones/joints: Normal. Soft tissues: Normal. XR/XR ankle LT min 3V* [id number] IMPRESSION: No acute findings.
--- NOTE | 2023-11-12 00:16 | XRR_ITS ---
PROCEDURE INFORMATION: Exam: XR Right Ankle Exam date and time: 11/12/2023 12:47 AM Age: 53 years old Clinical indication: Injury or trauma; Fall; Blunt trauma; Right; Injury details: Walking when ankle went out laterally and a pop was heard; Patient HX: Lateral ankle pain; Additional info: Fall, pain TECHNIQUE: Imaging protocol: Radiologic exam of the right ankle. Views: 3 or more views. COMPARISON: No relevant prior studies available. FINDINGS: Bones/joints: Normal mineralization and alignment. No evidence of acute fracture. Soft tissues: Mild soft tissue swelling over the lateral malleolus. XR/XR ankle RT min 3V* [id number] IMPRESSION: No evidence of acute fracture.
[2023-11-12] MEDS: oxyCODONE-APAP 5-325 mg Tablet 2 TAB PO (01:55)
--- NOTE | 2023-11-12 04:51 | W.ED.EXTPRO ---
HPI - Extremity Problem General: Chief complaint: Extremity Injury, Lower Stated complaint: right ankle injury Time Seen by Provider: 11/12/23 01:16 History of Present Illness: 53-year-old female who fell at home. She complains of lateral right ankle pain, and medial left ankle pain, with swelling to both. No other injuries. Associated symptoms: Deny chest pain, fever(s) or rash Review of Systems Const: Denies: fever(s) Card: Denies: chest pain Resp: Denies: dyspnea GI: Denies: abdominal pain Musc: Denies: neck pain Skin/Breast: Denies: rash Neuro: Denies: headache(s) PFSH ED PFSH: Medical History Osteoarthritis Bronchospasm Smoker Essential tremor Anxiety and depression Seizure History of stroke 2015 History of gout Surgical History History of brain surgery DBS Deep Brain Stimulator left side brain to control right body. April 2023 [place], [place] History of hernia repair 2015 History of hysterectomy 1999 Family History Mother Arthritis Cancer Breast Father Arthritis Brother Seizure disorder Social History Smoking and tobacco/nicotine status: former use of tobacco/nicotine Quit status (tobacco/nicotine): has quit using Year quit tobacco: 2022 Former quit date comment: 0.5 ppd X 39 years Alcohol intake: current Alcohol intake frequency: holidays/special occasions only Substance/Drug Use: unknown Adopted: No Caregiver/support person: No Lives independently: Yes Household members: spouse Housing: House Marital status: Number of children: 3 service: No Current occupational status: employed Current occupational exposures/hazards: No Pets and animals: Yes Do you think of yourself as: Straight/Heterosexual Current gender identity: Female Physical Exam Const: COMMON NORMALS: no acute distress GENERAL APPEARANCE: cooperative; not ill appearing and not frail appearing HENMT: COMMON NORMALS: normocephalic, atraumatic and Normal external nose present HEAD & SCALP: normocephalic and atraumatic FACE & SINUS: normal facial exam and face symmetric NOSE: Normal external nose present Eye: COMMON NORMALS: Equal, round and reactive pupils present and EOMs intact bilaterally PUPIL: Yes Equal, round and reactive pupils present Neck/C-Spine: GENERAL: Yes trachea midline Chest: CHEST: Yes Symmetrical chest wall rise Resp: COMMON NORMALS: normal respiratory effort, No retractions, No use of accessory muscles and clear to auscultation bilaterally AUSCULTATION: clear to auscultation bilaterally Cardio: COMMON NORMALS: regular rate and regular rhythm RATE: regular rate RHYTHM: regular rhythm GI: COMMON NORMALS: Normal to inspection, nondistended, normoactive bowel sounds present Extremity: NARRATIVE EXTREMITY EXAM: Exam the right ankle reveals tenderness over the lateral malleolus, ATFL. There is mild soft tissue swelling. No joint effusion. Mild ankle joint line tenderness. No deformity. Neurovascular is intact. Examination left ankle reveals mild swelling over the medial malleolus. There is mild tenderness. No lateral tenderness. No joint line tenderness. No deformity. Neurovascularly intact. Neuro: AUGUSTO COMA SCALE: document GCS findings Augusto coma scale eye opening: Spontaneous Augusto coma scale verbal response: Orientated [place] coma scale motor response: Obey commands [place] coma scale total score: 15 SENSORY EXAM: Yes extremities (intact) Psych: COMMON NORMALS: speech normal SPEECH: Yes normal speech Skin: COMMON NORMALS: no rashes or lesions noted GENERAL SKIN EXAM: no rashes or lesions noted Course Vital Signs: Vital signs: Vital Signs Temperature 97.7 F 11/12/23 00:10 Pulse Rate 88 11/12/23 00:10 Respiratory Rate 17 11/12/23 00:10 Blood Pressure 113/75 11/12/23 00:10 Pulse Oximetry 93 11/12/23 00:10 Oxygen Delivery Me thod Room Air 11/12/23 00:10 MDM - Extremity (Nontraumatic) Medical Decision Making Ankle x-rays bilaterally show no acute fracture. There are some soft tissue swelling laterally on the right, medially on the left. She will be placed in a stirrup for the right. Galdino wrap to left. Crutches for weightbearing. She was told she may weight-bear as tolerated. Ice, etc. Outpatient follow-up. Lab Data Radiology Impressions Ankle X-Ray 11/12/23 00:16 IMPRESSION: No acute findings. All radiology interpretation(s) finalized by discharge Discharge Plan Discharge Patient Disposition: Home Clinical Impression: Ankle sprain and strain Condition: Stable Prescriptions: New hydrocodone-acetaminophen 5-325 mg tablet 1 tab PO Q8H PRN (Reason: pain) Qty: 7 0RF No Action clonazepam 0.5 mg tablet 0.5 mg PO TID Zyrtec 10 mg capsule 10 mg PO DAILY propranolol 60 mg tablet 60 mg PO BID Qty: 60 5RF celecoxib [Celebrex] 200 mg capsule 200 mg PO BID Qty: 60 5RF duloxetine [Cymbalta] 30 mg capsule,delayed release(DR/EC) 30 mg PO BID Qty: 60 5RF fluticasone furoate-vilanterol [Breo Ellipta] 100-25 mcg/dose blister with device 1 inh inhalation Q24H Qty: 60 5RF hydroxyzine pamoate 25 mg capsule 25 mg PO TID PRN (Reason: anxiety) Qty: 90 5RF nortriptyline 75 mg capsule 75 mg PO DAILY Qty: 30 5RF rosuvastatin [Crestor] 10 mg tablet 10 mg PO DAILY Qty: 30 5RF albuterol sulfate [ProAir HFA] 90 mcg/actuation HFA aerosol inhaler 2 puff INHALATION QID PRN (Reason: shortness of breath or wheezing) Qty: 18 5RF allopurinol 100 mg tablet 100 mg PO DAILY Qty: 30 2RF ipratropium-albuterol 0.5 mg-3 mg(2.5 mg base)/3 mL solution for nebulization 3 ml inhalation Q6H PRN (Reason: shortness of breath or wheezing) Qty: 90 2RF Discharge Orders: Discharge ED (Routine); Ordered 11/12/23 Ordered By: Agus Mcfarlane Referrals: Franklin Chaves FNP-C [Primary Care Provider] - 4-7 days Patient Instructions: Ankle Sprain (ED), Opioid Safety, Pain Management Activity Restrictions/Additional Instructions: You may bear weight as tolerated. Ice for pain and swelling. Use pain medication for severe pain. Anti-inflammatories can help as well. Return for problems. Follow-up with your doctor this week. 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
== END 2023-11-12 01:56 | disposition home or self-care (01) ==
PROVIDERS: Emergency Provider Emergency Medicine; PCP Nurse Practitioner
DX: S93.409A Sprain of unspecified ligament of unspecified ankle, initial encounter (principal); S96.919A Strain of unspecified muscle and tendon at ankle and foot level, unspecified foot, initial encounter; Z87.891 Personal history of nicotine dependence; Z86.73 Personal history of transient ischemic attack (TIA), and cerebral infarction without residual deficits; W19.XXXA Unspecified fall, initial encounter
CPT/HCPCS: 73610; 99283; E0114

== ENCOUNTER → 2023-12-20 13:48 | Outpatient (BNVA) | payer OTHER, MEDICAID, SELFPAY | PROVIDERS: PCP Nurse Practitioner; Visit Provider Nurse Practitioner | DX: M10.9 Gout, unspecified (principal); E55.9 Vitamin D deficiency, unspecified | CPT/HCPCS: 82306; 84550 ==

== ENCOUNTER 2024-01-25 13:32 | Outpatient (CLI) | payer OTHER, MEDICAID, SELFPAY ==
--- NOTE | 2024-01-25 13:38 | US_ITS ---
WS: [id number] ULTRASOUND SOFT TISSUES cervical chains. HISTORY: LOCALIZED SWELLING,MASS, LUMP,NECK COMPARISON: None available. TECHNIQUE: 2-D and color Doppler imaging is submitted. Ultrasound was performed of the bilateral cervical chains. There are bilateral small lymph nodes iden tified. No mass is identified. No fluid collections. US/US soft tissue head neck [id number] IMPRESSION: No cervical adenopathy or mass along the cervical chains. If swelling persist c onsider follow-up MRI neck with IV contrast.
== END 2024-01-25 13:33 | disposition home or self-care (01) ==
LOC: RAD 13:32
PROVIDERS: PCP Nurse Practitioner; Visit Provider Otolaryngology
DX: R22.1 Localized swelling, mass and lump, neck (principal)
CPT/HCPCS: 76536

== ENCOUNTER 2024-03-20 09:49 | Outpatient (CLI) | payer OTHER, MEDICAID, SELFPAY ==
[2024-03-20 10:52] LABS: Basophils # 0.1 10^3/uL (0.0-0.1); Basophils % 1.2 %; Eosinophils # 0.3 10^3/uL (0.0-0.8); Eosinophils % 3.6 %; Hematocrit 48.2 % (36-47); Lymphocytes # 2.8 10^3/uL (0.8-4.8); Mean Corpuscular HGB Conc 32.6 g/dL (30-55); Mean Corpuscular Hemoglobin 32.2 pg (27-33); Mean Corpuscular Volume 98.8 fl (85-98); Mean Platelet Volume 9.9 fL (7.4-10.4); Monocytes # 0.8 10^3/uL (0.2-0.9); Monocytes % 11.4 %; Neutrophils # 3.32 10^3/uL (1.8-7.7); Neutrophils % 45.7 %; Nucleated Red Blood Cells % 0 %; Platelet Count 239 10^3/cmm (157-399); Red Blood Count 4.88 10^6/uL (3.85-5.65); Red Cell Distribution Width 12.5 % (12.1-15.1); White Blood Count 7.27 10^3/uL (3.29-11.43)
[2024-03-20 11:01] LABS: Bilirubin Urine Neg (Negative); Blood Urine Neg (Negative); Glucose Urine UA Norm (Normal); Ketones Urine Negative (Negative); Leukocyte Esterase Urine Negative (Negative); Nitrate Urine Negative (Negative); Protein Urine Neg (Negative); Urine Appearance Clear (CLEAR); Urine Color Yellow (Yellow); Urobilinogen Urine Norm (Negative); pH Urine 6 (5-7)
[2024-03-20 11:07] LABS: INR 0.87 (0.8-1.2)
[2024-03-20 11:08] LABS: Partial Thromboplastin Time 29.7 SECONDS (23.9-36.7)
[2024-03-20 11:08] LABS: Bacteria Urine TRACE /hpf; RBC Urine 0-4 /hpf (0-2); Squamous Epithelial Cell Urine 0-4 /hpf (0-5); WBC Urine RARE /hpf (0-5)
[2024-03-20 11:09] LABS: Add Urine Culture? No
[2024-03-20 11:25] LABS: Anion Gap 13.9 (5-19); Blood Urea Nitrogen 13 mg/dL (6-20); Calcium 9.7 mg/dL (8.5-10.5); Carbon Dioxide 31 mmol/L (22-29); Chloride 97 mmol/L (98-107); Glucose 101 mg/dL (65-115); Osmolality Calculated 284 mOsm/kg (285-295); Potassium 4.9 mmol/L (3.5-5.1); Sodium 137 mmol/L (136-145)
== END 2024-03-20 09:50 | disposition home or self-care (01) ==
PROVIDERS: PCP Nurse Practitioner; Visit Provider Neurological Surgery
DX: Z01.818 Encounter for other preprocedural examination (principal)
CPT/HCPCS: 36415; 80048; 81001; 85025; 85610; 85730

== ENCOUNTER → 2024-05-23 08:54 | Outpatient (BNVA) | payer OTHER, MEDICAID, SELFPAY | PROVIDERS: PCP Nurse Practitioner; Visit Provider Nurse Practitioner | DX: M25.562 Pain in left knee (principal); E55.9 Vitamin D deficiency, unspecified; E78.2 Mixed hyperlipidemia | CPT/HCPCS: 73562; 80053; 80061; 82306 ==

== ENCOUNTER → 2024-06-05 13:20 | Outpatient (BNVA) | payer OTHER, MEDICAID, SELFPAY | PROVIDERS: PCP Nurse Practitioner; Visit Provider Specialist | DX: M17.12 Unilateral primary osteoarthritis, left knee (principal) | CPT/HCPCS: 73560; 73565 ==

== ENCOUNTER 2024-12-24 11:48 | Day surgery (SDC) | payer OTHER, MEDICAID, SELFPAY ==
[2024-12-24 12:09] VITALS: BP 97/47; PULSE 90; RESP 18; TEMP 36.6; O2SAT 94; BMI 32.4
--- NOTE | 2024-12-24 12:25 | ANES.PREANE2 ---
Pre-Anesthetic Assessment Height/Weight: Height 1.68 m Weight 91.172 kg Temp Pulse Resp BP Pulse Ox O2 Del Method 97.9 F 90 18 97/47 94 Room Air 12/24/24 12:09 12/24/24 12:09 12/24/24 12:09 12/24/24 12:09 12/24/24 12:09 12/24/24 12:09 Preop Diagnosis: screening Operation Date: 12/24/24 13:00 Proposed Procedures p EGD [id number] G0105 Z12.11(Not Applicable) - Tyrell Bell MD s Colonoscopy(Not Applicable) - Tyrell Bell MD Was Beta Chey taken within 24 hours: Yes Was Clonidine taken within 24 hours: N/A Last intake: Intake Last Liquid Date 12/23/24 Last Liquid Time 21:00 Last Solid Date 12/22/24 Last Solid Time 22:00 Social No alcohol and No tobacco Exam alert, oriented x 3, clear to auscultation bilaterally and regular rate & rhythm diminished Airway Submandibular: within normal limits Cervical ROM: within normal limits Mallampati: Class II Dentition: full Comments: Comments: upper dentures History/ROS No significant history except as noted Pulmonary Asthma and Exertional Dyspnea Neuropsych deep brain stimulator - controls R side Anesthetic Plan ASA status: 3 Anesthesia: MAC Risk of > 500 ml blood loss (7ml/kg in children): No Medications/Allergies Home Medications ?Medication ?Instructions ?Recorded ?Confirmed ?Last Taken ?Type ipratropium 0.5 mg-albuterol 3 mg 3 ml inhalation Q6H PRN shortness 08/12/22 12/18/24 Unknown Rx (2.5 mg base)/3 mL nebulization of breath or wheezing #90 mL soln cetirizine 10 mg capsule (Zyrtec) 10 mg PO DAILY 10/18/22 12/18/24 12/23/24 History clonazepam 0.5 mg tablet 0.5 mg PO TID 10/18/22 12/18/24 12/23/24 History cholecalciferol (vitamin D3) 125 250 mcg PO DAILY 12/20/23 12/18/24 12/23/24 History mcg (5,000 unit) capsule albuterol sulfate 90 mcg/actuation 2 puff inhalation QID PRN 07/18/24 12/18/24 Unknown Rx aerosol inhaler shortness of breath or wheezing #18 grams allopurinol 100 mg tablet 100 mg PO DAILY #30 tabs 07/18/24 12/18/24 12/23/24 Rx celecoxib 200 mg capsule (Celebrex) 200 mg PO BID #60 caps 07/18/24 12/18/24 12/23/24 Rx duloxetine 30 mg capsule,delayed 30 mg PO BID #60 caps 07/18/24 12/18/24 12/23/24 Rx release (Cymbalta) fluticasone furoate 100 1 inh inhalation Q24H #60 ea 07/18/24 12/18/24 12/17/24 Rx mcg-vilanterol 25 mcg/dose inhalation powder (Breo Ellipta) hydroxyzine pamoate 25 mg capsule 25 mg PO TID PRN anxiety #90 caps 07/18/24 12/18/24 12/23/24 Rx nortriptyline 75 mg capsule 75 mg PO DAILY #30 caps 07/18/24 12/18/24 12/23/24 Rx propranolol 60 mg tablet 60 mg PO BID #60 tabs 07/18/24 12/24/24 12/23/24 20:00 Rx rosuvastatin 10 mg tablet 10 mg PO DAILY #30 tabs 07/18/24 12/18/24 12/23/24 Rx galcanezumab-gnlm 120 mg/mL 120 mg SUBCUT .month #2 mL 10/22/24 12/18/24 12/17/24 Rx subcutaneous syringe (Emgality) Allergies Allergy/AdvReac Type Severity Reaction Status Date / Time aspirin Allergy upset Verified 12/18/24 11:36 stomach cephalexin (From Keflex) Allergy swelling Verified 12/18/24 11:36 of tongue gabapentin Allergy ADR-Seizure Verified 12/18/24 11:36 zonisamide AdvReac Severe Seizure Verified 12/18/24 11:36 PFSH Anesthesia Medical History Osteoarthritis Bronchospasm Smoker Essential tremor Anxiety and depression Seizure History of stroke 2014 History of gout Surgical History History of brain surgery DBS Deep Brain Stimulator left side brain to control right body. April 2023 [place], [place] History of hernia repair 2015 History of hysterectomy 2000 Family History Mother Arthritis Cancer Breast Father Arthritis Brother Seizure disorder Social History Smoking and tobacco/nicotine status: former use of tobacco/nicotine Quit status (tobacco/nicotine): has quit using Year quit tobacco: 2022 Former quit date comment: 0.5 ppd X 39 years Alcohol intake: current Alcohol intake frequency: holidays/special occasions only Substance/Drug Use: unknown Adopted: No Caregiver/support person: No Lives independently: Yes Household members: spouse Housing: House Marital status: Number of children: 3 service: No Current occupational status: employed Current occupational exposures/hazards: No Pets and animals: Yes Do you think of yourself as: Straight/Heterosexual Current gender identity: Female Data Anesthesia Cardiac Studies: No Data to Display
[2024-12-24] MEDS: sodium chloride 0.9% 1,000 ML 30 ML IV (12:41)
--- NOTE | 2024-12-24 12:42 | W.PM.OPSUD ---
Surgery/Procedure H&P Update DATE OF PROCEDURE: December 24, 2024 DATE H&P PERFORMED: 12/05/24 H&P UPDATE INFORMATION: I have reviewed H&P completed within last 30 days, I have examined patient prior to procedure and No changes to prior documentation PREOP DIAGNOSIS: screening PLANNED PROCEDURE: Operation Date: 12/24/24 13:00 Proposed Procedures p EGD [id number] G0105 Z12.11(Not Applicable) - Tyrell Bell MD s Colonoscopy(Not Applicable) - Tyrell Bell MD
[2024-12-24 13:14] VITALS: BP 108/73; PULSE 94; RESP 16; TEMP 36.1; O2SAT 93
[2024-12-24 13:16] VITALS: BP 110/78; PULSE 89; RESP 18; O2SAT 94
--- NOTE | 2024-12-24 13:37 | ANE.PACU2 ---
Inpatient post-anesthesia follow up: Airway intact: Yes Vital signs: Temperature 97 F Pulse Rate 89 Respiratory Rate 18 Blood Pressure 110/78 Pulse Oximetry 94 Oxygen Delivery Me thod Room Air Oxygen Flow Rate Fraction of Inspir ed Oxygen Hydration adequate: Yes Nausea and vomiting: No Pain level: 1 Mental status: Baseline
== END 2024-12-24 13:59 | disposition home or self-care (01) ==
PROVIDERS: PCP Nurse Practitioner; Visit Provider Student in an Organized Health Care Education/Training Program
PROC: 0DJ08ZZ Inspection of Upper Intestinal Tract, Via Natural or Artificial Opening Endoscopic (ICD-10-PCS; principal; 2024-12-24 13:00)
PROC: 0DJD8ZZ Inspection of Lower Intestinal Tract, Via Natural or Artificial Opening Endoscopic (ICD-10-PCS; CPT 45378; 2024-12-24 13:00)
DX: K29.50 Unspecified chronic gastritis without bleeding (principal); R19.4 Change in bowel habit; J45.909 Unspecified asthma, uncomplicated; Z96.82 Presence of neurostimulator; Z79.899 Other long term (current) drug therapy; Z88.8 Allergy status to other drugs, medicaments and biological substances; Z87.891 Personal history of nicotine dependence
CPT/HCPCS: 43239; 45378; 88305; 88342; J2704; J7030

== ENCOUNTER → 2025-01-13 12:16 | Outpatient (BNVA) | payer OTHER, MEDICAID, SELFPAY | PROVIDERS: PCP Nurse Practitioner; Visit Provider Nurse Practitioner | DX: E55.9 Vitamin D deficiency, unspecified (principal); F41.9 Anxiety disorder, unspecified; F32.9 Major depressive disorder, single episode, unspecified; M10.09 Idiopathic gout, multiple sites | CPT/HCPCS: 80053; 80061; 82306; 84443; 84550 ==